=== PATIENT | female | born 2000 | race Caucasian/White ===

== ENCOUNTER 2023-01-02 12:04 | Emergency (ER) | payer OTHER, SELFPAY ==
[2023-01-02 12:40] VITALS: BP 121/73; PULSE 74; RESP 17; TEMP 36.6; O2SAT 98; BMI 23.8
[2023-01-02 15:18] VITALS: BP 108/78; PULSE 70; RESP 14; TEMP 36.6; O2SAT 99
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
== END 2023-01-02 15:20 | disposition home or self-care (01) ==
PROVIDERS: Emergency Provider Student in an Organized Health Care Education/Training Program
DX: M25.551 Pain in right hip (principal); V43.62XA Car passenger injured in collision with other type car in traffic accident, initial encounter
CPT/HCPCS: 99281; 99282

== ENCOUNTER 2024-12-09 06:53 | Emergency (ER) | payer OTHER, SELFPAY ==
[2024-12-09 07:19] VITALS: BP 126/73; PULSE 82; O2SAT 100
[2024-12-09 07:20] VITALS: BP 126/73; PULSE 68; RESP 18; TEMP 37.1; O2SAT 100; BMI 28.3
[2024-12-09 07:37] VITALS: PULSE 77; O2SAT 99
[2024-12-09 08:00] VITALS: BP 102/67; PULSE 70; O2SAT 100
--- NOTE | 2024-12-09 08:11 | ED.DENTAL ---
HPI - Dental/Oral General Chief complaint: Dental/Oral Stated complaint: tonsil pain this morning Time Seen by Provider: 12/09/24 07:21 Source: patient Mode of arrival: Ambulatory History of Present Illness HPI Narrative: 24-year-old female presents with acute on chronic tonsil pain and swelling. She has an appointment with ENT for the 1st time in January but woke up this morning with some bleeding from the right tonsil which concerned her. She denies any issues with allergies this time of year. No acute respiratory infectious symptoms such as sore throat or congestion. She says that she does not snore. She has not had a fever or neck pain. She reports has gotten relief in the past with some steroids and that ?every time they tells me for strep or mono is negative. ? Related Data Previous Rx's ?Medication ?Instructions ?Recorded methylprednisolone 4 mg tablets in See Rx Instructions PO .COMPLEX 12/09/24 a dose pack #21 ea Allergies Allergy/AdvReac Type Severity Reaction Status Date / Time ondansetron (From Zofran) Allergy Severe Anaphylaxis Verified 12/09/24 07:21 ibuprofen Allergy Intermediate Hives Verified 12/09/24 07:21 naproxen Allergy Intermediate Hives Verified 12/09/24 07:21 Review of Systems Review of Systems Narrative: Pertinent ROS obtained and negative except as stated in HPI Patient History tobacco type: vaping alcohol intake frequency: other Exam Initial Vital Signs Initial Vital Signs: Vital Signs Pulse Rate 82 12/09/24 07:19 Blood Pressure 126/73 12/09/24 07:19 Pulse Oximetry 100 12/09/24 07:19 Constitutional: Well appearing, no acute distress Head: NCAT ENT: 3+ tonsils noted that are slightly erythematous and hypertrophic, right tonsils slightly greater than left. No active bleeding. No pus noted. Cardiovascular: normal rate, appears well perfused Pulmonary: normal effort Extremities: No LE edema Skin: warm and dry Neurological: Alert Course Vital Signs Vital signs: Vital Signs - 8 hr 12/09/24 07:20 Temperature 98.7 F Pulse Rate 68 Respiratory Rate 18 Blood Pressure 126/73 Pulse Oximetry 100 Oxygen Delivery Method Room Air MDM - Dental/Oral MDM Narrative Medical decision making narrative: Tonsils today and enlarged and appear chronically inflamed. No pus or fever or other respiratory infectious symptoms that would be indicative of acute strep. 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 Normal WOB and tolerating secretions. I am not concerned about a deep neck space infection. Given relapsing remitting nature and lack of response to antibiotics in past we have decided to defer these tests and therapies again. She has gotten relief in past with steroid injection. She is referred to ENT for consultation for tonsillectomy. Return precautions discussed and provided prior to discharge. Discharge Plan Departure Patient Disposition: Home Clinical Impression: Chronic hypertrophy of tonsils and adenoids Activity Restrictions/Additional Instructions: I prescribed you steroids to use at home to try to reduce tonsil pain and swelling. I also recommend taking ibuprofen 800 mg every 8 hours for a few days although be sure to take with food or drink as steroids and NSAIDs can be hard of your stomach. Please keep your appointment with ENT physician in January. They may recommend removing your tonsils given the chronic nature of your symptoms. Return to the emergency department for re-evaluation if having difficulty breathing, sore throat, fever, neck stiffness, or not able to drink liquids due to tonsil enlargement, or other symptoms that are concerning to you Prescriptions: New methylprednisolone 4 mg tablets,dose pack See Rx Instructions .ROUTE .COMPLEX Qty: 21 0RF Rx Instructions: for 6 days Referrals: ProviderAnnalee [Primary Care Provider, Family Practice] Stand Alone Forms: Patient Portal/API, Work Release Note
== END 2024-12-09 08:35 | disposition home or self-care (01) ==
PROVIDERS: Emergency Provider Student in an Organized Health Care Education/Training Program
DX: J35.3 Hypertrophy of tonsils with hypertrophy of adenoids (principal)
CPT/HCPCS: 99281